=== PATIENT | male | born 1965 | race African-American/Black ===

== ENCOUNTER 2020-05-11 14:22 | Emergency (ER) | payer MEDICAID, OTHER ==
[~2020-05-11] VITALS: Ht 195.6 cm; Wt 122.0 kg
[2020-05-11] MEDS ORDERED: metformin (14:27)
[2020-05-11] MEDS ORDERED: furosemide (14:27)
[2020-05-11] MEDS ORDERED: lisinopril (14:27)
[2020-05-11] MEDS ORDERED: coreg (14:27)
[2020-05-11] MEDS ORDERED: lipitor (14:27)
[2020-05-11] MEDS ORDERED: albuterol (14:28)
[2020-05-11 17:13] LABS: HEMATOCRIT. 46.1 % (42.0-52.0); HEMOGLOBIN. 13.5 g/dL (14.0-18.0); MEAN CORPUSCULAR HEMOGLOBIN 23.6 pg (28.0-32.0); MEAN CORPUSCULAR VOLUME 80.9 fL (80.0-94.0); MEAN PLATELET VOLUME 8.8 fl (7.4-10.4); PLATELET 74 x1000/uL (130-400)
[2020-05-11 17:21] LABS: CHLORIDE 103 mEq/L (98-107)
[2020-05-11 17:48] VITALS: BP 155/93
[2020-05-11 17:48] LABS: PLATELET ESTIMATE DECREASED
== END 2020-05-11 18:49 | disposition left against medical advice (07) ==
LOC: ER 14:39
DX: I12.0 Hypertensive chronic kidney disease with stage 5 chronic kidney disease or end stage renal disease (principal); E11.22 Type 2 diabetes mellitus with diabetic chronic kidney disease; N18.6 End stage renal disease; D63.1 Anemia in chronic kidney disease; D69.6 Thrombocytopenia, unspecified; E88.09 Other disorders of plasma-protein metabolism, not elsewhere classified; E46 Unspecified protein-calorie malnutrition; R74.01 Elevation of levels of liver transaminase levels; R74.8 Abnormal levels of other serum enzymes; E11.65 Type 2 diabetes mellitus with hyperglycemia; E87.8 Other disorders of electrolyte and fluid balance, not elsewhere classified; E87.70 Fluid overload, unspecified; J44.9 Chronic obstructive pulmonary disease, unspecified; Z99.2 Dependence on renal dialysis
CPT/HCPCS: 36415; 71045; 80053; 83605; 83880; 84484; 85025; 87040; 93005; 99285; Z7610